=== PATIENT | male | born 1955 | race Two or more races ===

== ENCOUNTER 2019-07-26 18:20 | Emergency (ER) | payer OTHER ==
[~2019-07-26] VITALS: Ht 177.8 cm; Wt 86.2 kg
[~2019-07-26 18:20] MED LIST: CARAFATE1 G PO; CIPRO500 MG PO; FLAGYL500MG PO; LEVSIN0.125 MG PO; ZANTAC300 MG PO; ZOFRAN4 MG PO
== END 2019-07-26 20:11 | disposition home or self-care (01) ==
LOC: ER 18:20
DX: M54.5 Low back pain (principal)

== ENCOUNTER → 2019-08-20 | Emergency (ER) | payer OTHER ==
[~2019-08-20] VITALS: Ht 175.3 cm; Wt 84.8 kg
[~2019-08-20] MED LIST changes: +IRBESARTAN-HCT1 EACH
== END | disposition home or self-care (01) ==
LOC: ER 19:26
DX: K40.90 Unilateral inguinal hernia, without obstruction or gangrene, not specified as recurrent (principal); K57.90 Diverticulosis of intestine, part unspecified, without perforation or abscess without bleeding; R10.31 Right lower quadrant pain

== ENCOUNTER 2019-10-18 07:55 | Emergency (ER) | payer OTHER ==
[~2019-10-18] VITALS: Ht 175.3 cm; Wt 84.4 kg
[2019-10-18] MEDS ORDERED: ZANTAC 7575 MG (08:50)
[2019-10-18] MEDS ORDERED: PEPCID AC20 MG (08:50)
[2019-10-18] MEDS ORDERED: PEPCID AC10 MG (08:50)
== END 2019-10-18 18:36 | disposition home or self-care (01) ==
LOC: ER 07:55
DX: K57.30 Diverticulosis of large intestine without perforation or abscess without bleeding (principal); R10.84 Generalized abdominal pain

== ENCOUNTER 2021-05-14 15:32 | Emergency (ER) | payer OTHER ==
[~2021-05-14] VITALS: Ht 175.3 cm; Wt 86.2 kg
[~2021-05-14 15:32] MED LIST changes: +PEPCID AC10 MG; +PEPCID AC20 MG; +ZANTAC 7575 MG
[2021-05-14] MEDS ORDERED: ATORVASTATIN CA20 MG PO (15:51)
[2021-05-14] MEDS ORDERED: AMBIEN10 MG PO (15:51)
== END 2021-05-14 18:50 | disposition home or self-care (01) ==
LOC: ER 15:32
DX: K29.70 Gastritis, unspecified, without bleeding (principal); R10.11 Right upper quadrant pain

== ENCOUNTER 2023-12-22 08:50 | Emergency (ER) | payer OTHER ==
[~2023-12-22] VITALS: Ht 177.8 cm; Wt 88.9 kg
[~2023-12-22 08:50] MED LIST changes: +AMBIEN10 MG PO; +ATORVASTATIN CA20 MG PO
[2023-12-22 09:56] LABS: HEMATOCRIT 42.7 % (39.0-48.0); HEMOGLOBIN 15.2 g/dL (13-16.00); MEAN CELL VOLUME 91.3 fL (80.0-100.00); MEAN CORPUSCULAR HEMOGLOBIN 32.5 pg (27.00-32.0); MEAN CORPUSCULAR HGB CONC 35.6 g/dl (32.0-36.0); PLATELET COUNT 273 K/uL (150-450); RED BLOOD COUNT 4.68 M/uL (4.00-6.00); RED CELL DISTRIBUTION WIDTH 13.2 % (11.5-14.5)
[2023-12-22 10:25] LABS: ALBUMIN 3.9 gm/dL (3.4-5.0); BILIRUBIN TOTAL 0.55 mg/dL (0.3-1.2); CREATININE SERUM 1.05 mg/dL (0.70-1.30); GFR 70.67; GLOBULINA 3.4 G/DL (2.4-3.5); TOTAL PROTEIN 7.3 gm/dL (6.4-8.2)
[2023-12-22 10:46] LABS: PH,URINE 5.5 (5.0-8.0); URINE APPEARANCE Clear; URINE BILIRRUBIN Negative (NEGATIVE); URINE COLOR Dark Yellow; URINE GLUCOSE Negative (NEGATIVE); URINE LEUKOCYTE Trace; URINE NITRATE Negative; URINE PROTEIN 30 (NEGATIVE); URINE UROBILINOGEN 0.2 E.U./dl
[2023-12-22 10:51] LABS: URINE BACTERIA 20.1 uL (0.0-1933); URINE EPITHELIAL CELLS 7.4 uL (0.0-38.8); URINE RBC 23.1 uL (0.0-20.8)
[2023-12-22 11:11] LABS: URINE BLOOD TRACE
== END 2023-12-22 12:07 | disposition home or self-care (01) ==
LOC: ER 08:50
PROVIDERS: General Practice
DX: R19.7 Diarrhea, unspecified (principal); Z20.822 Contact with and (suspected) exposure to COVID-19; I10 Essential (primary) hypertension; Z88.6 Allergy status to analgesic agent